=== PATIENT | male | born 1955 | race Caucasian/White ===

== ENCOUNTER 2025-01-23 11:37 | Emergency (ER) | payer MEDICARE, OTHER, SELFPAY ==
[2025-01-23 11:39] VITALS: BP 115/78
--- NOTE | 2025-01-23 12:00 | ED.GENMED ---
History of Present Illness
General
Chief Complaint: Allergic Reaction
Source: patient
Exam Limitations: none
Time Seen by Provider: 01/23/25 11:40
History of Present Illness
History of Present Illness:
69yoM with a history of prostate cancer (on Zytiga and radiation treatments, follows with Miguel Mann), hypertension, and hyperlipidemia presenting via EMS for evaluation of an allergic reaction. Patient was feeling unwell last night with fatigue and
chills. Started to notice that his left wrist was itchy and applied CeraVe cream. He then noticed a generalized red itchy rash this morning. His chills have resolved and he is otherwise feeling well currently. He went to a [facility] for
concern for an allergic reaction. EMS was activated and he received 50 mg IV Benadryl prehospital. Patient denies any dysphagia, tongue swelling, vomiting, diarrhea, shortness of breath. No new products and patient has been taking Zytiga and 5mg
prednisone daily for over a month now.
Phy Exam
General Physical Exam
General Presentation: well appearing and no apparent distress
General Skin: warm and dry
General Habitus: normal
General Mental: alert
ENT Exam
ENT Exam: normocephalic and other (No oropharyngeal swelling)
Cardiovascular Exam
Cardiovascular Exam: regular rate/rhythm
Pulmonary Exam
Pulmonary Exam: lungs clear, no respiratory distress, no rales, no crackles, no rhonchi and no wheezing
Neurological Exam
Neurological Exam: alert
Skin Exam
Skin Exam: warm/dry and other (Generalized red raised morbilliform rash noted primarily in the trunk region. Blanchable. No skin sloughing. )
Psychiatric Exam
Psychiatric Exam: normal mood/affect
Course
Orders/Labs/Results
Orders:
Orders
01/23/25 11:59
0.9% Sodium Chloride 1000 ml [Nss] 1,000 ml IV BOLUS
Dexamethasone Sod Phosphate [Decadron] 10 mg IV NOW STA
01/23/25 12:10
Complete Blood Count/With Diff Urgent
Comprehensive Metabolic Panel Urgent
Abnormal Lab Results
01/23/25
12:10
RBC 3.93 L 10^6/uL
(4.70-6.10)
Hgb 12.8 L g/dL
(13.0-18.0)
Hct 36.5 L %
(39.0-52.0)
MCH 32.6 H pg
(27.0-31.0)
Plt Count 118 L 10^3/uL
(130-400)
Absolute Lymphs (auto) 0.2 L 10^3/uL
(1.2-3.4)
Neutrophils % 81.4 H %
(42.2-75.2)
Lymphocytes % 3.2 L %
(20.5-51.1)
Eosinophils % 6.2 H %
(0-6)
Chloride 109 H mmol/L
(98-107)
Glucose 116 H mg/dl
(70-99)
Total Bilirubin 2.2 H mg/dl
(0.2-1.3)
01/23/25 12:10
01/23/25 12:10
Vital Signs
Initial and Last Documented VS:
Initial Vital Signs
Temp Pulse Resp BP Pulse Ox
98.2 F 68 20 115/78 99
01/23/25 11:39 01/23/25 11:39 01/23/25 11:39 01/23/25 11:39 01/23/25 11:39
Last Documented Vital Signs
Temp Pulse Resp BP Pulse Ox
98.2 F 78 18 119/72 99
01/23/25 11:39 01/23/25 13:54 01/23/25 13:54 01/23/25 13:54 01/23/25 13:54
MDM/Problems Addressed
Differential Diagnosis Includes:
69yoM here with a red itchy rash that began earlier today. Had chills last night which have resolved. Received 50mg IV Benadryl prehospital. VSS. He is well appearing in no distress. Red morbilliform rash noted on exam. Differential diagnosis
includes: allergic reaction, drug eruption, DRESS syndrome, less likely petechiae/thrombocytopenia, no clinical evidence of anaphylaxis
Initial ED plan: Check CBC and CMP. IV Decadron and fluid bolus ordered. No indication for epinephrine.
*Pulse Oximetry
SaO2: 99
Oxygen Mode of Delivery: Room air
Patient hypoxic: no
*Critical Care Note
Total Time (30-74mins, 75-104mins- exclusive of procedures): Not Applicable
Update Note
Update Note:
Labs reveal a mild thrombocytopenia with platelets of 118. No prior labs to compare to. Remainder of labs unremarkable including normal white count and renal function. Patient remains well appearing on reassessment and feels his rash is improving.
He is stable for discharge. He was advised to take Benadryl Q6 PRN. He is scheduled to see his radiation oncologist tomorrow. ED return precautions reviewed.
ED Attending Note
-
Portions of this chart may have been created with voice recognition software.� Occasional wrong word or��sound alike� substitutions may have occurred due to the inherent limitations of voice recognition software.
Discharge Plan
Departure
Patient Disposition: Home (Routine Discharge)
Date of Disposition: 01/23/25
Time of Disposition: 13:13
Patient with high blood pressure during this ER visit?: No
Discharge Problem:
Urticaria
Instructions: Hives (DC)
Referrals:
Sharlene Mai MD [Family Provider, Family Practice]
Activity Restrictions/Additional Instructions:
Take Benadryl 25mg every 6 hours as needed.
Please follow-up with your oncology team tomorrow. Return to the ER with any worsening symptoms including trouble breathing or fevers.
Interventions
Interventions:
*General Assessment Last Done: 01/23/25 11:39
*Nursing Disposition Last Done: 01/23/25 13:54
ED- Cardiac Assessment Last Done: 01/23/25 12:33
ED- Pulmonary Assessment Last Done: 01/23/25 12:33
ED-Skin Assessment Last Done: 01/23/25 12:33
Discharge Date and Time
Discharge Date/Time: 01/23/25 14:32
Print Language: SETSWANA
[2025-01-23] MEDS: NSS 1000 IV (12:11)
[2025-01-23] MEDS: DECADRON 10 MG IV (12:12)
[2025-01-23 12:37] LABS: Hematocrit 36.5 % (39.0-52.0); Hemoglobin 12.8 g/dL (13.0-18.0); Mean Corp Hgb Conc. 35.1 g/dL (33.0-37.0); Mean Corpuscular Volume 92.9 fL (80.0-94.0); Nucleated Red Blood Cells % 0 % (-); Platelet Count 118 10^3/uL (130-400); Red Cell Dist. Width 12.9 % (11.5-14.5)
[2025-01-23 12:50] LABS: ALT (SGPT) 21 U/L (0-50); AST (SGOT) 21 U/L (17-59); Albumin 4.1 g/dl (3.5-5.0); Alkaline Phosphatase 60 U/L (38-126); Blood Urea Nitrogen 14 mg/dl (9-20); Calcium 8.6 mg/dl (8.4-10.2); Carbon Dioxide 23 mmol/L (22-30); Chloride 109 mmol/L (98-107); Glucose 116 mg/dl (70-99); Potassium 3.6 mmol/L (3.5-5.1); Sodium 139 mmol/L (135-145); Total Protein 6.7 g/dl (6.3-8.2); eGFR > 60.00
[2025-01-23 13:54] VITALS: BP 119/72
== END 2025-01-23 14:32 | disposition home or self-care (01) ==
LOC: EMR 11:37
PROVIDERS: Physician Assistant; EMERGENCY PHYSICIAN Emergency Medicine; FAMILY PHYSICIAN Family Medicine
DX: L50.9 Urticaria, unspecified (principal); I10 Essential (primary) hypertension; E78.00 Pure hypercholesterolemia, unspecified; Z85.46 Personal history of malignant neoplasm of prostate
CPT/HCPCS: 99283; 96374; 96361; 80053; 85025